=== PATIENT | male | born 1935 | race Caucasian/White ===

== ENCOUNTER → 2025-01-03 | Outpatient (CLI) | payer MEDICARE, BC, SELFPAY ==
[2025-01-03 09:35] LABS: Basophils # (Auto) 0.1 Thou/mm3 (0.0-0.2); Basophils % (Auto) 1 % (0-2.5); Eosinophils # (Auto) 0.3 Thou/mm3 (0.0-0.5); Eosinophils % (Auto) 4 % (0-10); Hematocrit 43.4 % (41.0-53.0); Hemoglobin 14.5 g/dL (13.5-16.0); Immature Granulocytes % (Auto) 0 % (0-0); Immature Granulocytes Auto 0.02 Thou/mm3 (0.00-0.00); Lymphocytes % (Auto) 39 % (10-50); Mean Corpuscular HGB Conc 33.4 g/dl (31.0-37.0); Mean Corpuscular Hemoglobin 30.9 pg (25.0-35.0); Mean Corpuscular Volume 93 fL (80-100); Monocytes # (Auto) 0.6 Thou/mm3 (0.0-0.8); Monocytes % (Auto) 8 % (0-12); Neutrophils # (Auto) 3.7 Thou/mm3 (1.8-7.7); Neutrophils % (Auto) 48 % (37-80); Nucleated Red Blood Cell % 0 /100 WBC (0); Platelet Count 222 Thou/mm3 (140-440); Red Blood Count 4.69 Miln/mm3 (4.50-5.90); White Blood Count 7.7 Thou/mm3 (3.8-10.6)
[2025-01-03 10:09] LABS: Glucose Estimated Average 117 mg/dL (80-131); Hemoglobin A1C 5.7 % Hgb (4.8-6.0)
[2025-01-03 10:16] LABS: Vitamin D 25 Hydroxy Total 52.9 ng/mL (7.3-40.2)
[2025-01-03 10:22] LABS: Alanine Aminotransferase 10 U/L (10-49); Albumin, Serum 4.4 gm/dL (3.4-4.8); Albumin/Globulin Ratio 1.9 (1.2-2.2); Alkaline Phosphatase 66 U/L (46-116); Anion Gap 4 (7-16); Aspartate Amino Transferase 13 U/L (0-34); BUN/Creatinine Ratio 14 Ratio (12-20); Bilirubin,Total 0.8 mg/dL (0.3-1.2); Blood Urea Nitrogen 15 mg/dL (9-23); Calcium 8.9 mg/dL (8.3-10.6); Calcium (Corrected) 8.9 mg/dL (8.5-10.1); Carbon Dioxide 31.2 mMol/L (20.0-31.0); Cardiac Risk Estimate 2.4 RATIO (4.0-6.7); Chloride 108 mMol/L (98-107); Cholesterol 99 mg/dL (132-200); Creatinine (Component) 1.1 mg/dL (0.6-1.3); Free T4 (Free Thyroxine) 1.01 ng/dL (0.89-1.76); Globulin 2.3 gm/dL (2.3-3.5); Glucose 107 mg/dL (74-106); HDL Cholesterol 41 mg/dL (40-60); LDL Cholesterol,Calculated 43 mg/dL (0-130); Osmolality,Calculated 285 (275-295); Sodium 143 mMol/L (136-145); Thyroid Stimulating Hormone 3.38 uIU/mL (0.55-4.78); Total Protein 6.7 gm/dL (5.7-8.2); Triglycerides 75 mg/dL (30-150); eGFR > 60 See Note
== END | disposition home or self-care (01) ==
LOC: COPL 08:37
PROVIDERS: PCP Internal Medicine; Referring Provider Internal Medicine; Visit Provider Internal Medicine
DX: I11.0 Hypertensive heart disease with heart failure (principal); E11.9 Type 2 diabetes mellitus without complications; E55.9 Vitamin D deficiency, unspecified; E78.2 Mixed hyperlipidemia; E03.9 Hypothyroidism, unspecified
CPT/HCPCS: 36415; 80053; 80061; 82306; 83036; 84439; 84443; 85025

== ENCOUNTER 2025-01-29 09:29 | Emergency (ER) | payer MEDICARE, BC, SELFPAY ==
[2025-01-29 09:30] VITALS: BMI 21.6
--- NOTE | 2025-01-29 09:36 | EKG_ITS ---
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
[2025-01-29 09:49] VITALS: BP 153/82; PULSE 67; RESP 18; TEMP 36.5; O2SAT 95
--- NOTE | 2025-01-29 09:53 | XR_ITS ---
Examination: CT brain head without contrast. 2-D sagittal coronal reconstructions Date and time of exam:January 29, 2025 1138 hours INDICATIONS: Dizziness episodes with syncope today CTDI: vol (mGy):48.3 DLP: (mGycm):958 Technique: Multiple CT axial sections of the brain have been obtained, 5 mm slice thickness. Contrast has not been administered. 2-D sagittal, coronal reconstructions have been obtained Low dose protocols were performed. One or more of the following dose reduction techniques were used; automated exposure control, adjustment of the mA and/or KV according to patient size, use of iterative reconstruction technique. Findings: No significant ventricular enlargement. Intra-axial or extra-axial hemorrhage density is not seen. No mass effect or midline shift Basal cisterns are not remarkable. Fourth ventricle is midline. Cranial vault intact. Impression: Negative for acute hemorrhage, mass effect or midline shift Advise clinical correlation follow-up accordingly
--- NOTE | 2025-01-29 09:53 | XR_ITS ---
Examination: PA lateral chest 2 views TECHNIQUE: Upright PA lateral chest 2 views Date and time: January 29, 2025 1005 hours Comparison September 2017 INDICATIONS: Acute chest pain today. FINDINGS: Large retrocardiac gastric hernia Normal heart size No pneumonia or pulmonary edema Old right-sided rib fractures IMPRESSION: No interval pneumonia or pulmonary edema
--- NOTE | 2025-01-29 09:54 | PD.EDRME ---
Rapid Medical Screening Exam RME Arrival date/time: 01/29/25 09:29 89-year-old male presents emergency department today for complaints of dizziness and near syncopal episode Chief Complaint: Syncope / Near Syncope Vital signs: Vital Signs Temperature 97.7 F 01/29/25 09:49 Pulse Rate 67 01/29/25 09:49 Respiratory Rate 18 01/29/25 09:49 Blood Pressure 153/82 H 01/29/25 09:49 Pulse Oximetry (%) 95 01/29/25 09:49 Oxygen Delivery Method Room Air 01/29/25 09:49
[2025-01-29 10:33] LABS: Basophils # (Auto) 0.1 Thou/mm3 (0.0-0.2); Basophils % (Auto) 1 % (0-2.5); Eosinophils # (Auto) 0.2 Thou/mm3 (0.0-0.5); Eosinophils % (Auto) 2 % (0-10); Hematocrit 42.6 % (41.0-53.0); Immature Granulocytes % (Auto) 1 % (0-0); Immature Granulocytes Auto 0.05 Thou/mm3 (0.00-0.00); Lymphocytes # (Auto) 2.8 Thou/mm3 (1.0-4.8); Lymphocytes % (Auto) 35 % (10-50); Mean Corpuscular HGB Conc 35.2 g/dl (31.0-37.0); Mean Corpuscular Hemoglobin 31.3 pg (25.0-35.0); Mean Corpuscular Volume 89 fL (80-100); Monocytes # (Auto) 0.6 Thou/mm3 (0.0-0.8); Monocytes % (Auto) 7 % (0-12); Neutrophils # (Auto) 4.4 Thou/mm3 (1.8-7.7); Neutrophils % (Auto) 55 % (37-80); Nucleated Red Blood Cell % 0 /100 WBC (0); Platelet Count 228 Thou/mm3 (140-440); RDW Standard Deviation 43.6 fL (35.1-43.9)
[2025-01-29 11:00] LABS: Alanine Aminotransferase 13 U/L (10-49); Albumin, Serum 4.6 gm/dL (3.4-4.8); Alkaline Phosphatase 70 U/L (46-116); Anion Gap 10 (7-16); Aspartate Amino Transferase 17 U/L (0-34); BUN/Creatinine Ratio 12 Ratio (12-20); Bilirubin,Total 0.8 mg/dL (0.3-1.2); Blood Urea Nitrogen 14 mg/dL (9-23); Calcium 10.3 mg/dL (8.3-10.6); Calcium (Corrected) 10.3 mg/dL (8.5-10.1); Carbon Dioxide 30.7 mMol/L (20.0-31.0); Chloride 99 mMol/L (98-107); Creatinine (Component) 1.2 mg/dL (0.6-1.3); Estimated Creatinine Clearance 43.1 mL/min (>60); Globulin 2.3 gm/dL (2.3-3.5); Glucose 159 mg/dL (74-106); Osmolality,Calculated 282 (275-295); Potassium 3.6 mMol/L (3.4-5.1); Sodium 140 mMol/L (136-145); Total Protein 6.9 gm/dL (5.7-8.2); Troponin I < 0.020 ng/mL (0.0-0.045); eGFR 59 See Note
[2025-01-29 11:47] VITALS: BP 158/81; PULSE 64; RESP 22; TEMP 36.6; O2SAT 95
[2025-01-29 11:54] VITALS: BP 153/80; BP 159/86; BP 164/95; PULSE 63; PULSE 67; PULSE 72
--- NOTE | 2025-01-29 12:05 | PD.EDDIZZY ---
ED Dizzyness RME/HPI General Chief Complaint: Syncope / Near Syncope Stated Complaint: SYNCOPAL EPISODE THIS AM Time Seen by Provider: 01/29/25 11:56 Source: patient Arrival date/time: 01/29/25 09:29 89-year-old male with a history of hypertension presents to the emergency room with a chief complaint of dizziness and a near syncopal episode that occurred this morning. Mode of arrival: ambulatory Limitations: no limitations RME / HPI RME / HPI Narrative: 01/29/25 09:29 89-year-old male presents emergency department today for complaints of dizziness and near syncopal episode Related Data Home Medications ?Medication ?Instructions ?Recorded ?Confirmed losartan 50 mg-hydrochlorothiazide 1 tab PO QDAY High Blood Pressure 08/05/13 06/27/18 12.5 mg tablet ##0 Previous Rx's ?Medication ?Instructions ?Recorded nitroglycerin 0.4 mg sublingual 0.4 mg buccal QDAY PRN Chest pain 10/06/17 tablet or difficulty swallowing #30 tabs finasteride 5 mg tablet 5 mg PO QDAY #60 tabs 03/26/22 amoxicillin 875 mg-potassium 1 tab PO BID 7 days #14 tabs 01/29/25 clavulanate 125 mg tablet meclizine 25 mg tablet 25 mg PO BID PRN dizziness #14 tabs 01/29/25 ofloxacin 0.3 % ear drops 5 drp otic (ear) QDAY 7 days #5 mL 01/29/25 Allergies Allergy/AdvReac Type Severity Reaction Status Date / Time No Known Allergies Allergy Verified 01/29/25 09:33 Review of Systems Review of Systems Systems Reviewed: All systems reviewed, normal except as documented Constitutional Constitutional: Reports system reviewed and no additional complaints, except as documented, Denies fatigue, Denies fever(s), Denies headache(s) and Reports weakness Eyes Eyes: Reports system reviewed and no additional complaints, except as documented, Denies blurry vision and Denies change in vision ENT Ears, Nose, Mouth, and Throat: Reports system reviewed and no additional complaints, except as documented, Denies otalgia, Denies headache(s), Denies nasal congestion, Denies throat swelling and Reports vertigo Cardiovascular Cardiovascular: Reports system reviewed and no additional complaints, except as documented, Denies chest pain, Denies dyspnea and Denies dyspnea on exertion Respiratory Respiratory: Reports system reviewed and no additional complaints, except as documented, Denies chest congestion, Denies cough, Denies dyspnea, Denies dyspnea on exertion and Denies wheezing Gastrointestinal Gastrointestinal: Reports system reviewed and no additional complaints, except as documented, Denies abdominal pain, Denies cramping, Denies nausea and Denies vomiting Genitourinary Genitourinary: Reports system reviewed and no additional complaints, except as documented, Denies dysuria and Denies hematuria Musculoskeletal Musculoskeletal: Reports system reviewed and no additional complaints, except as documented and Denies back pain Integumentary/Breasts Skin/Breast: Reports system reviewed and no additional complaints, except as documented and Denies wounds Neurologic Neurologic: Reports system reviewed and no additional complaints, except as documented, Denies confusion, Denies headache(s), Denies lack of coordination, Reports vertigo and Reports weakness Psychiatric Psychiatric: Reports system reviewed and no additional complaints, except as documented, Denies anxiety, Denies confusion, Denies depression, Denies paranoia, Denies suicidal ideation and Denies tactile hallucinations Endocrine Endocrine: Reports system reviewed and no additional complaints, except as documented and Denies fatigue Hematologic/Lymphatic Hematologic/Lymphatic: Reports system reviewed and no additional complaints, except as documented and Denies lymphadenopathy Allergic/Immunologic Allergic/Immunologic: Reports system reviewed and no additional complaints, except as documented, Denies throat swelling, Denies urticaria and Denies wheezing Past Medical History Past Medical History NEUROLOGIC: Negative Neurological Disorders or Seizures CARDIAC: Positive Cardiac Disorders and Hypertension; Negative Congestive Heart Failure RESPIRATORY: Negative Chronic Obstructive Pulmonary Disease (COPD) GASTROINTESTINAL: Positive Gastrointestinal Disorders, Gastrointestinal Bleed, Ulcer and Gastroesophageal Reflux Disease GENITOURINARY: Positive Genitourinary Disorders and Benign Prostatic Hyperplasia; Negative Renal Disease MUSCULOSKELETAL: Negative Musculoskeletal Disorders ENT: Positive Cataracts (OD IOL) ENDOCRINE: Negative Endocrine Disorders, Diabetes Mellitus Type 1 or Diabetes Mellitus Type 2 OTHER HISTORY: Negative Blood Transfusions, Blood Transfusion Reaction or Anesthesia Reactions Family History FAMILY HISTORY: Positive Family Cardiac Disorders (Brother) and Family Cancer (Father, Mother, Brother); Negative Family Anesthesia Reaction Social History SMOKING STATUS: Never smoker ED Exam General Limitations: Present no limitations General appearance: Present alert and in no apparent distress Head Head exam: Present atraumatic Eye Eye exam: Present normal appearance, PERRL and EOMI ENT ENT exam: Present normal exam, normal oropharynx and mucous membranes moist Neck Neck exam: Present normal inspection, full ROM and trachea midline Chest Chest inspection: Present normal inspection and symmetric chest wall rise Respiratory Respiratory exam: Present normal lung sounds bilaterally Cardiovascular Cardiovascular exam: Present regular rate, normal rhythm and normal heart sounds Abdominal Exam Abdominal exam: Present soft and normal bowel sounds Extremities Exam Extremities exam: Present normal inspection and full ROM Back Exam Back exam: Present normal inspection and full ROM Neurological Exam Neurological exam: Present alert, oriented X3, CN II-XII intact, normal gait and reflexes normal Expanded Neurological Exam Patient oriented to: Present person, place and time Speech: Present fluid speech Cranial nerves: Normal: EOM function (II, III, IV, ) and facial sensation (V) Cerebellar function: Present normal gait Motor strength - LUE: 5/5 Motor strength - RUE: 5/5 Motor strength - LLE: 5/5 Motor strength - RLE: 5/5 Coma scale eye opening: spontaneous Coma scale motor response: obeys commands Coma scale verbal response: oriented Coma scale total: 15 Psychiatric Psychiatric exam: Present normal affect and normal mood Skin Skin exam: Present warm, dry, intact and normal color Course Quality Measures none Orders Category Date Time Status Automobile Body Repair Supervisor NOW Care 01/29/25 09:53 Active EKG (ED ONLY) *Do not use* NOW Care 01/29/25 09:36 Completed Irrigation both ears ONCE Care 01/29/25 12:04 Active Orthostatic Vitals NOW Care 01/29/25 09:[address] head/brain wo con Stat Exams 01/29/25 09:53 Completed EKG (ED Only) Stat Exams 01/29/25 09:36 Draft XR chest 2V Stat Exams 01/29/25 09:53 Completed CBC Stat Lab 01/29/25 10:18 Completed Comprehensive Metabolic Panel Stat Lab 01/29/25 10:18 Completed Troponin I Stat Lab 01/29/25 10:18 Completed Meclizine HCl [Antivert] Med 01/29/25 12:04 Discontinued 50 mg PO X1 ONE Scopolamine [Transderm-Scop Patch] Med 01/29/25 12:03 Discontinued 1 mg TOP X1 ONE Vital Signs Vital signs: Vital Signs Temperature 97.7 F 01/29/25 09:49 Pulse Rate 67 01/29/25 09:49 Respiratory Rate 18 01/29/25 09:49 Blood Pressure 153/82 H 01/29/25 09:49 Pulse Oximetry (%) 95 01/29/25 09:49 Oxygen Delivery Method Room Air 01/29/25 09:49 Procedures -ED EKG Interpretation #1: Date of EK01/29/25 Rate: 68 Interpretation: Reviewed by me EKG Impression: Normal sinus rhythm Dizziness MDM Narrative MDM Narrative:: 89-year-old male with a history of hypertension presents to the emergency room with a chief complaint of dizziness and a near syncopal episode that occurred this morning. Patient is hemodynamically stable and in no apparent distress. Physical examination shows a normal neurological exam. Patient is a GCS of 15 pupils are PERRLA EOMs are intact. Patient has no focal deficits. Cardiac examination was within normal limits. EKG showed normal sinus rhythm at [address] deviation CBC CMP troponin were all within normal limits. Evaluation of the patient's ear showed bilateral cerumen impaction of both ears. The tympanic membrane was not able to be visualized. An ear irrigation was ordered and after the irrigation both tympanic membranes were examined the right-sided tympanic membrane is bulging and erythemic. Hallpike maneuver was also completed and was positive. A CT of the head and brain were completed and was negative for any acute findings. The patient's cardiac examination was within normal limits. Patient was reevaluated with 1 hour after his meclizine with significant improvement to his symptoms. Patient was discharged and educated to follow-up with primary care provider in the next 24 to 48 hours and return to the emergency room for any evidence of worsening signs or symptoms Patient data External records reviewed:: [facility] previous records Clinical information provided by:: patient Social determinants that could affect healthcare access:: none Patient has the following chronic illnesses:: Hypertension How is presenting disease/condition affected by chronic disease/condition?: uneffected by Evaluation data The following diagnostics were reviewed and interpreted by me:: lab results and radiology exam(s) Lab and/or radiology exams considered but not ordered:: Labs radiology exams considered in order Interpretation Summary: CT of the head and brain-Findings: No significant ventricular enlargement. Intra-axial or extra-axial hemorrhage density is not seen. No mass effect or midline shift Basal cisterns are not remarkable. Fourth ventricle is midline. Cranial vault intact. Impression: Negative for acute hemorrhage, mass effect or midline shift Advise clinical correlation follow-up accordingly Medications / Prescriptions Medications or Prescriptions considered but not ordered:: Medication given Medication administrations:: Medication Administration History Discontinued Medications Meclizine HCl (Meclizine Hcl 25 Mg Tablet) 50 mg PO X1 ONE Stop: 01/29/25 12:05 Last Admin: 01/29/25 12:25 Dose: 50 mg Documented By: YESSENIA Scopolamine (Scopolamine 1 Mg Tdsy) 1 mg TOP X1 ONE Stop: 01/29/25 12:04 Last Admin: 01/29/25 12:25 Dose: 1 mg Documented By: YESSENIA Medication given Consultations Consultation(s) initiated? (list below): No Diagnosis Dizziness Differential Diagnosis: benign paroxysmal positional vertigo, orthostatic hypotension, cerebrovascular accident and transient cerebral ischemia Most likely diagnosis given after review of the tests above:: Vertigo Admission Indicated Admission indicated?: not indicated Admission Request Was there a request for admission?: No Disposition Plan Disposition Plan: Discharge Discharge Attestation Discharge Attestation: The patient and all family members were given an opportunity to ask questions and understood the discharge instructions. Discharge instructions specifically effects, indications for sooner follow up or return to the emergency department, and the expected course of current diagnosis. Patient condition: Stable Discharge Plan Plan Patient Disposition: HOME (Self Care) Discharge Disposition comment: Stable Prescriptions/Referrals Prescriptions/Med Rec: New ofloxacin 0.3 % drops 5 drp otic (ear) QDAY 7 Days Qty: 5 0RF meclizine 25 mg tablet 25 mg PO BID PRN (Reason: dizziness) Qty: 14 0RF amoxicillin-pot clavulanate 875-125 mg tablet 1 tab PO BID 7 Days Qty: 14 0RF No Action losartan-hydrochlorothiazide 50-12.5 mg Tablet 1 tab PO QDAY Qty: 0 finasteride 5 mg tablet 5 mg PO QDAY Qty: 60 0RF nitroglycerin 0.4 mg tablet, sublingual 0.4 mg BUCCAL QDAY PRN (Reason: Chest pain or difficulty swallowing) Qty: 30 0RF Referrals: Jassi Ochoa MD [Primary Care Provider] - In 1 week Problem List Clinical Impression: Vertigo, Otitis media Patient/Caregiver Discharge Instructions Education Materials: Anatomy of the Inner Ear, Vertigo Medicine Tx, Vertigo Staying Safe, ED Otitis Media Antibiotic ... Additional Instructions: Please follow-up with your primary care provider in the next [address] scan of your head and brain was completed and was negative for any acute findings. Your blood work and cardiac examination was within normal limits. Antibiotics are sent to your pharmacy for your ear infection. Please pick them up and take them as indicated Your ears were irrigated and cleaned. Please take medication as indicated For any evidence of worsening signs or symptoms return to the emergency room immediately Print Language: Sami Stand Alone Forms: [place] Award Info., Patient Portal Info Letter SITA/SATHISH Supervising Physician SITA/SATHISH Supervising Physician: Dr Tomlinson
[2025-01-29] MEDS: MECLIZINE HCL 25 MG TABLET 50 MG PO (12:25)
[2025-01-29] MEDS: SCOPOLAMINE 1 MG TDSY TOP (12:25)
[2025-01-29 14:00] VITALS: BP 146/87; PULSE 59; RESP 18; O2SAT 98
== END 2025-01-29 14:02 | disposition home or self-care (01) ==
PROVIDERS: Nurse Practitioner Primary Care; Emergency Provider Emergency Medicine; PCP Internal Medicine
DX: H66.91 Otitis media, unspecified, right ear (principal); I44.0 Atrioventricular block, first degree; I44.4 Left anterior fascicular block; R07.9 Chest pain, unspecified
CPT/HCPCS: 36415; 70450; 71046; 80053; 84484; 85025; 93005; 99284; A9270